=== PATIENT | female | born 1960 | race Caucasian/White ===

== ENCOUNTER → 2016-05-03 | Outpatient (CLI) | payer BC ==
[2016-05-03 09:39] LABS: MEAN PLATELET VOLUME 8.8 FL (6.0-9.5); WHITE BLOOD COUNT 7.71 10^3uL (4.0-11.0)
[2016-05-03 09:40] LABS: MEAN CORPUSCULAR HEMOGLOBIN 25.7 PG (26.0-34.0)
[2016-05-03 10:53] LABS: ALBUMIN 3.7 g/dL (3.4-5.0); ANION GAP 14.1 MEQ/L (3-15); CALCULATED IONIZED CALCIUM 3.9 mg/dL (3.8-4.6); TOTAL PROTEIN 7.2 g/dL (6.4-8.5)
== END ==
LOC: LAB 09:20
PROVIDERS: ATTEND Emergency Medicine
DX: Z13.220 Encounter for screening for lipoid disorders (principal); I10 Essential (primary) hypertension; E03.8 Other specified hypothyroidism
CPT/HCPCS: 36415; 80053; 80061; 84443; 85027